=== PATIENT | female | born 1925 | race Caucasian/White ===

== ENCOUNTER 2016-04-30 06:48 | Day surgery (SDC) | payer BC ==
--- NOTE | ~2016-04-30 | EGD ---
EGD REPORT [facility] [address] [place]. [address] NAME: MATT DE LEON : [birth year] STATUS : REG [facility]#: [id number] AGE: 89 ADM/REG DATE : 04/30/16 MR#: [id number] REPORT SERV DATE: 04/30/16 DICTATED BY: YAIR SZYMANSKI DATE: 04/30/16 REPORT STATUS : Draft TRANSCRIBED BY: [employer] DATE: 04/30/16 [facility] Patient Name: Matt De Leon Date of : 1925 Attending MD: YAIR SZYMANSKI, Procedure Date No Time: 04/30/2016 Procedure: Upper EUS Indications: Lymphadenopathy on CT scan Referring MD: JEFRY DAMICO Medicines: Sedation Required Anesthesia Staff Assistance, Monitored Anesthesia Care Complications: No immediate complications. Estimated blood loss: None. Procedure: Pre-Anesthesia Assessment: - ASA Grade Assessment: III - A patient with severe systemic disease. After obtaining informed consent, the endoscope was passed under direct vision. Throughout the procedure, the patient's blood pressure, pulse, and oxygen saturations were monitored continuously. The GIF H190 [id number] was introduced through the mouth, and advanced to the second part of duodenum. The Endoscope was introduced through the mouth, and advanced to the second part of duodenum. Findings: Endoscopic Finding : The examined esophagus was endoscopically normal. Diffuse moderate inflammation characterized by erythema was found in the entire examined stomach. Biopsies were taken with a cold forceps for histology. Verification of patient identification for the specimen was done. Estimated blood loss was minimal. The cardia and gastric fundus were normal on retroflexion. The examined duodenum was normal. Endosonographic Finding : Many enlarged lymph nodes were visualized in the alvaro hepatis region. The largest measured 45 mm by 29 mm in maximal cross-sectional diameter. The nodes were oval, hypoechoic and had well defined margins. Fine needle aspiration was performed. Color Doppler imaging was utilized prior to needle puncture to confirm a lack of significant vascular structures within the needle path. Ten passes were made with the 22 gauge needle. No stylet was used. A preliminary cytologic examination was not performed. Final cytology results are pending. There was no sign of significant endosonographic abnormality in the entire pancreas. There was no sign of significant endosonographic abnormality in the EGD REPORT [address] [address] NAME: MATT DE LEON : [birth year] STATUS : REG [facility] PAT#: [id number] AGE: 89 ADM/REG DATE : 04/30/16 MR#: [id number] REPORT SERV DATE: 04/30/16 DICTATED BY: YAIR SZYMANSKI DATE: 04/30/16 REPORT STATUS : Draft TRANSCRIBED BY: [employer] [facility] DATE: 04/30/16 common bile duct. There was no sign of significant endosonographic abnormality in the examined duodenum. Endosonographic images of the stomach were unremarkable. There was no sign of significant endosonographic abnormality in the esophagus. Impression: - Normal esophagus. - Gastritis. Biopsied. - Normal examined duodenum. - Many enlarged lymph nodes were visualized in the alvaro hepatis region. - There was no sign of significant pathology in the entire pancreas. - There was no sign of significant pathology in the common bile duct. - There was no sign of significant pathology in the examined duodenum. - Endosonographic images of the stomach were unremarkable. - There was no sign of significant pathology in the esophagus. Recommendation: - Return to previous diet. - Continue present medications. - Await cytology results. Procedure Code(s): --- Professional --- 54112, Esophagogastroduodenoscopy, flexible, transoral; with transendoscopic ultrasound-guided intramural or transmural fine needle aspiration/biopsy(s) (includes endoscopic ultrasound examination of the esophagus, stomach, and either the duodenum or a surgically altered stomach where the jejunum is examined distal to the anastomosis) Diagnosis Code(s): --- Professional --- K29.70, Gastritis, unspecified, without bleeding R59.0, Localized enlarged lymph nodes R59.1, Generalized enlarged lymph nodes CPT copyright 2013 [employer]. All rights reserved. The codes documented in this report are preliminary and upon medical records coder review may be revised to meet current compliance requirements. EGD REPORT [facility] [address] [place] [address] [address] NAME: MATT DE LEON : [birth year] STATUS : REG [facility] PAT#: [id number] AGE: 89 ADM/REG DATE : 04/30/16 MR#: [id number] REPORT SERV DATE: 04/30/16 DICTATED BY: YAIR SZYMANSKI DATE: 04/30/16 REPORT STATUS : Draft TRANSCRIBED BY: [employer] DATE: 04/30/16 YAIR SZYMANSKI 04/30/2016 8:52 AM Number of Addenda: 0 Note Initiated On: 04/30/2016 8:06 AM Scope Withdrawal Time 0 hours 0 minutes 0 seconds [address] [place] [address] [id number]
[~2016-04-30 06:48] MED LIST: ACET500CAP PO; ANASPAZ0.125 MG PO; ASA5GR PO; ASAB PO; ASAEC PO; ATV.5 PO; CAT1 PO; CYANO1000T PO; FISH-EPA1000 MG PO; FOLIC PO; LEVAQUIN750 MG PO; LIBRAX PO; METAMUCIL CAN7 OZ PO; MIRALAX POWDER1 PKT PO; MUCINEX1200 MG PO; MULTIPLE VIT PO; MULTIVITAMI1 PO; NORV5 PO; P10 PO; PRESERVISION A1 EACH PO; PRILOSEC10 MG PO; PRILOSEC40 MG PO; PRIN10 PO; PRIN20 PO; PROAIR HFA INH; REST75 PO; VITAMIN D400 UNI1 PO; ZOLOFT25 MG PO
[2016-10-07] MEDS ORDERED: NORCO1 TA2 PO (10:21)
[2016-10-08] MEDS ORDERED: DURA25 TOP ×3 (08:46→15:00)
== END 2016-04-30 23:59 | disposition home or self-care (01) ==
LOC: DMU 06:48
PROVIDERS: Internal Medicine Gastroenterology
PROC: 0DB68ZX Excision of Stomach, Via Natural or Artificial Opening Endoscopic, Diagnostic (ICD-10-PCS; 2016-04-30)
PROC: BD47ZZZ Ultrasonography of Gastrointestinal Tract (ICD-10-PCS; 2016-04-30)
PROC: 0DB68ZX Excision of Stomach, Via Natural or Artificial Opening Endoscopic, Diagnostic (ICD-10-PCS; principal; 2016-04-30 09:00)
DX: C83.33 Diffuse large B-cell lymphoma, intra-abdominal lymph nodes (principal); K29.50 Unspecified chronic gastritis without bleeding; J45.909 Unspecified asthma, uncomplicated; K21.9 Gastro-esophageal reflux disease without esophagitis; J44.9 Chronic obstructive pulmonary disease, unspecified; M19.90 Unspecified osteoarthritis, unspecified site; M81.0 Age-related osteoporosis without current pathological fracture; F41.9 Anxiety disorder, unspecified; F32.9 Major depressive disorder, single episode, unspecified; I10 Essential (primary) hypertension; Z88.5 Allergy status to narcotic agent; Z88.0 Allergy status to penicillin; Z88.2 Allergy status to sulfonamides; Z88.1 Allergy status to other antibiotic agents; Z79.82 Long term (current) use of aspirin; Z79.899 Other long term (current) drug therapy; Z98.41 Cataract extraction status, right eye; Z98.42 Cataract extraction status, left eye; Z90.89 Acquired absence of other organs; Z90.49 Acquired absence of other specified parts of digestive tract; Z90.710 Acquired absence of both cervix and uterus; Z98.890 Other specified postprocedural states
CPT/HCPCS: 88173; 88184; 88185; 88305; 88341; 88342; 88360; C1725

== ENCOUNTER 2016-10-08 12:31 | Inpatient (IN) | payer BC ==
[~2016-10-08] VITALS: Ht 157.5 cm; Wt 60.5 kg
--- NOTE | ~2016-10-08 | DS ---
Discharge Summary [id number] [place]. [address] NAME: MATT DE LEON : [birth year] STATUS : DIS [facility] PAT#: [id number] AGE: 89 ADM/REG DATE : 10/08/16 MR#: [id number] REPORT SERV DATE: 10/10/16 DICTATED BY: FREDO PIKE DATE: 10/09/16 REPORT STATUS : Draft TRANSCRIBED BY: [employer] DATE: 10/09/16 ADMISSION DATE: 10/08/2016 DISCHARGE DATE: 10/09/2016 FINAL DIAGNOSES: 1. Septic shock. 2. Possibility of perforated bowel or complication of procedure from celiac trunk nerve block. 3. Advanced stage large B-cell lymphoma. 4. Hypertension. 5. Chronic pain syndrome. 6. Anemia. 7. Gastroesophageal reflux. 8. Asthma. 9. Polymyalgia rheumatica. CONSULTANTS DURING THIS HOSPITALIZATION: None. INVASIVE PROCEDURES DONE DURING THIS HOSPITALIZATION: None. BRIEF HISTORY OF PRESENT ILLNESS: The patient is an 89-year-old female with advanced stage large B-cell lymphoma, has had significant pain, apparently Dr. Chau performed a celiac axis block and after that she had significant increase in her pain, so she was admitted. For detailed history and physical exam, please see my note dictated on 10/08/2016. HOSPITAL COURSE: After being admitted to the hospital, this patient initially was thought to have just intractable pain from neurological or nerve pain. So, she was given a Dilaudid [employer] and we continued to try and manage her pain. Upon admission, this patient had wished to be a DNR and did not want to be resuscitated as well. On the day of her admission we did check a serum lactate level and it was 1.3. At that time, there was no evidence of any infection. Her white count was normal; however, during the night her condition worsened. She had more pain. She had increased distention of her abdomen. We did do blood cultures at that time, because of the intervention procedure that she has had. In the morning the blood cultures returned back as gram-negative bacilli which was later identified as E coli. This morning this patient had a sudden worsening of her overall status. Her blood pressure dropped, she had a temp. Her lactate level went up to 7.6, and we tried to resuscitate her with IV fluids and starting immediately on antibiotics, by then she had worsening of her respiratory symptoms as well. I did order a CT scan which when I came to assess the patient this morning, the patient was too unstable to go to the scanner, at that time we discussed her care with the daughter and Dr. Alegre had already discussed possibility of hospice with the patient the week prior to her admission. The daughter wanted Mrs. De Leon to be kept comfortable. No further intervention. She was placed on a Dilaudid infusion to control her pain and the patient peacefully in the hospital. DISPOSITION: The patient . Discharge Summary [address] [address] NAME: MATT DE LEON : [birth year] STATUS : DIS [facility] PAT#: [id number] AGE: 89 ADM/REG DATE : 10/08/16 MR#: [id number] REPORT SERV DATE: 10/10/16 DICTATED BY: FREDO PIKE DATE: 10/09/16 REPORT STATUS : Draft TRANSCRIBED BY: JBAARI DATE: 10/09/16 SV/JABARI Fredo Piek M.D. / [id number] CC: Deshaun Olsen M.D. Oana L. Andreescu, M.D.
[~2016-10-08 12:31] MED LIST changes: +DURA25 TOP; +NORCO1 TA2 PO
[2016-10-08 14:39] LABS: ASCORBIC ACID (UR NOT ORDER) NEG (NEG); BILIRUBIN, URINE NEGATIVE (NEG); KETONE, URINE NEGATIVE (NEG); LEUKOCYTE ESTERASE(NOT OR NEG (NEG); WBC (NOT ORDERED) (RFLEX) 1 (0-5)
[2016-10-08] MEDS ORDERED: DEX4 PO (14:57)
[2016-10-08] MEDS ORDERED: NORV5 PO (14:57)
[2016-10-08] MEDS ORDERED: REST75 PO (14:58)
[2016-10-08] MEDS ORDERED: P10 PO (14:58)
[2016-10-08] MEDS ORDERED: NORCO1 TA2 PO (14:58)
[2016-10-08] MEDS ORDERED: PROAIR HFA INH (14:58)
[2016-10-08] MEDS ORDERED: DURA25 TOP ×2 (14:59→15:00)
[2016-10-08] MEDS ORDERED: ATV.5 PO (15:00)
[2016-10-08] MEDS ORDERED: ZOLOFT25 MG PO (15:00)
[2016-10-08] MEDS ORDERED: PRILOSEC40 MG PO (15:00)
[2016-10-08] MEDS ORDERED: MIRALAX POWDER1 PKT PO (15:01)
[2016-10-08] MEDS ORDERED: FOLIC PO (15:01)
[2016-10-08] MEDS ORDERED: CALTRA600D PO (15:01)
[2016-10-08] MEDS ORDERED: PRIN20 PO (15:01)
[2016-10-08] MEDS ORDERED: ASAEC PO (15:01)
[2016-10-08] MEDS ORDERED: NIZORALCRM TOP (15:02)
[2016-10-08] MEDS ORDERED: METRONIDAZOLE 0.75% TOP (15:03)
[2016-10-08] MEDS ORDERED: FLUOCINOLONE 0.025% TOP (15:04)
[2016-10-08] MEDS ORDERED: COMP10B PO (15:04)
[2016-10-08] MEDS ORDERED: GENTEAL OPH (15:05)
[2016-10-08] MEDS ORDERED: VITAMIN B-12 PO (15:05)
[2016-10-08] MEDS ORDERED: PRESERVISION A1 EACH PO (15:05)
[2016-10-08] MEDS ORDERED: IRON PO (15:06)
[2016-10-08] MEDS ORDERED: [UNRECOGNIZED DRUG - REMARK] PO (15:07)
[2016-10-08 16:12] LABS: BASOPHILS 0 %; EOSINOPHILS 0 %; HEMOGLOBIN 12.4 g/dL (12.0-16.0); IMMATURE GRANULOCYTES 4.4 %; LYMPHOCYTES 1.8 %; LYMPHOCYTES ABSOLUTE 0.04 10/3/uL (0.67-4.30); MEAN CORPUS HGB CONC 33.5 g/dL (32.0-36.0); MEAN CORPUSCULAR HEMOGLOB 32.2 pg (26.0-34.0); MEAN CORPUSCULAR VOLUME 96.1 fL (80-100); MEAN PLATELET VOLUME 9.2 fL (9.2-13.0); MONOCYTES 2.2 %; MONOCYTES ABSOLUTE 0.05 10/3/uL (0.21-1.20); NEUTROPHILS 91.6 %; NEUTROPHILS ABSOLUTE 2.06 10/3/uL (2.02-8.40); PLATELET COUNT 105 10/3/uL (150-400); RBC DISTRIBUTION WIDTH 14.9 % (12.0-16.0); RED CELL COUNT 3.85 10/6/uL (4.0-5.6)
[2016-10-08 16:16] LABS: WHITE BLOOD CELLS 2.3 10/3/uL (4.5-10.5)
[2016-10-08 16:17] LABS: MANUAL DIFF NO %
[2016-10-08 16:30] LABS: ALBUMIN 3.6 G/DL (3.5-5.0); CALCIUM, SERUM 9.2 MG/DL (8.5-10.4); CHLORIDE, SERUM 102 MMOL/L (96-112); CO2 (CARBON DIOXIDE) 27 MMOL/L (24-34); CREATININE 0.85 MG/DL (0.55-1.02); GFR AFRICAN AMERICAN 70 ML/MIN (>=60); GFR NON AFRICAN AMERICAN 61 ML/MIN (>=60); GLOBULIN 3.5 G/DL (2.5-4.1); SGOT(AST) 33 U/L (5-40); SGPT(ALT) 26 U/L (5-65); SODIUM, SERUM 137 MMOL/L (135-148); TOTAL PROTEIN 7.1 G/DL (6.0-8.5)
[2016-10-08 16:32] LABS: ALKALINE PHOSPHATASE 57 U/L (45-117); BUN (BLOOD UREA NITROGEN) 25 MG/DL (6-23); GLUCOSE, SERUM 206 MG/DL (60-99); POTASSIUM, SERUM 3.3 MMOL/L (3.5-5.3); TOTAL BILIRUBIN 1.4 MG/DL (0-1.2); ULTRASENSITIVE TSH 0.818 MCIU/ML (0.358-3.740)
[2016-10-08 16:41] LABS: PROCALCITONIN <0.05 ng/mL (<0.5)
[2016-10-08 17:03] LABS: BAND NEUTROPHILS 12 %; IMMATURE GRANS ABSOLUTE (CALC) 0.05 10/3/uL (0.0-0.11); LYMPHOCYTES 2 %; LYMPHOCYTES ABSOLUTE (CALC) 0.05 10/3/uL (0.67-4.30); METAMYELOCYTES 2 %; MONOCYTES 1 %; MONOCYTES ABSOLUTE (CALC) 0.02 10/3/uL (0.21-1.20); NEUTROPHILS ABSOLUTE (CALC) 2.19 10/3/uL (2.02-8.40); PLATELET ESTIMATE SLT DEC (ADEQUATE); SEGMENTED NEUTROPHIL (0) 83 %; TOTAL NUCLEATED CELLS 100; TOXIC GRANULATION SLT
[2016-10-09 05:17] LABS: CALCIUM, SERUM 8.9 MG/DL (8.5-10.4); CHLORIDE, SERUM 106 MMOL/L (96-112); PHOSPHORUS, SERUM 1.4 MG/DL (2.5-4.5); POTASSIUM, SERUM 3.8 MMOL/L (3.5-5.3); SODIUM, SERUM 140 MMOL/L (135-148)
[2016-10-09 05:19] LABS: BUN (BLOOD UREA NITROGEN) 36 MG/DL (6-23); CO2 (CARBON DIOXIDE) 20 MMOL/L (24-34); CREATININE 1.73 MG/DL (0.55-1.02); GFR AFRICAN AMERICAN 30 ML/MIN (>=60); GFR NON AFRICAN AMERICAN 26 ML/MIN (>=60); GLUCOSE, SERUM 152 MG/DL (60-99)
== END 2016-10-09 13:34 | disposition expired | DRG 867 ==
LOC: CANRESERV → ENRESERVDT → ENRESERVTM → ENRESERV → 4EA 12:39
PROVIDERS: Internal Medicine
PROC: 3E0T3BZ Introduction of Anesthetic Agent into Peripheral Nerves and Plexi, Percutaneous Approach (ICD-10-PCS; principal; 2016-10-08)
DX: T80.29XA Infection following other infusion, transfusion and therapeutic injection, initial encounter (principal); T81.12XA Postprocedural septic shock, initial encounter; K63.1 Perforation of intestine (nontraumatic); C83.33 Diffuse large B-cell lymphoma, intra-abdominal lymph nodes; D64.9 Anemia, unspecified; I10 Essential (primary) hypertension; Y84.8 Other medical procedures as the cause of abnormal reaction of the patient, or of later complication, without mention of misadventure at the time of the procedure; M35.3 Polymyalgia rheumatica; Y92.238 Other place in hospital as the place of occurrence of the external cause; Z88.2 Allergy status to sulfonamides; Z88.5 Allergy status to narcotic agent; Z79.82 Long term (current) use of aspirin; Z79.891 Long term (current) use of opiate analgesic; Z79.51 Long term (current) use of inhaled steroids; Z79.52 Long term (current) use of systemic steroids; R53.83 Other fatigue; D47.2 Monoclonal gammopathy; G89.4 Chronic pain syndrome; K21.9 Gastro-esophageal reflux disease without esophagitis; J45.909 Unspecified asthma, uncomplicated; Z66 Do not resuscitate
CPT/HCPCS: 36415; 64530; 74000; 77300; 77301; 77338; 80053; 80069; 81001; 82533; 83605; 84145; 84443; 85025; 85610; 85730; 86850; 86900; 86901; 87040; 87077; 87150; 87186; 93005; A9270-GY; J0692; J1170; J2250; J2405; J2550; J3010; J3370; P9047